=== PATIENT | male | born 1940 | race Two or more races ===

== ENCOUNTER 2024-05-25 09:44 | Inpatient (IN) | payer OTHER ==
[2024-05-25] VITALS (17 sets, daily range): BP systolic 80–156; BP diastolic 32–67; PULSE 46–57; RESP 11–17; TEMP 98.3–98.4; O2SAT 94–100
[~2024-05-25] VITALS: Ht 167.6 cm; Wt 76.0 kg
[~2024-05-25 09:44] MED LIST: AMLO1TAB21 PO; ATEN50TA80 PO; MULT-733 OR
[2024-05-25] MEDS ORDERED: HEPARIN SODIUM (PORCINE) 5000 UNITS/ML 1ML VIAL ONE (13:24)
[2024-05-25] MEDS ORDERED: fentaNYL CITRATE 100 MCG/2 ML VL ONE (13:27)
[2024-05-25] MEDS ORDERED: LIDOCAINE 1% INJ PF 5ML AMP ONE (13:28)
[2024-05-25] MEDS ORDERED: ONDANSETRON HCL 4 MG/2 ML VIAL ONE (13:28)
[2024-05-25] MEDS ORDERED: PROPOFOL 10 MG/ML 20 ML IV ONE (13:29)
[2024-05-25] MEDS ORDERED: MIDAZOLAM HCL 2MG/2ML 2ml VIAL (1mg/ml) ONE (13:32)
[2024-05-25 13:57] LABS: Basophils # (auto) 0.1 10 ^3/uL (0-0.2); Basophils % (auto) 0.6 % (0.0-2.0); Eosinophils # (auto) 0.3 10 ^3/uL (0-0.8); Eosinophils % (auto) 3.2 % (0.0-7.0); Hematocrit 41.6 % (41.0-53.0); Hemoglobin 13.8 g/dL (13.5-17.5); Lymphocytes # (auto) 1.2 10 ^3/uL (0.4-5.4); Lymphocytes % (auto) 10.9 % (10.0-50.0); Mean Corpuscular Hemoglobin 28.6 pg (28.0-32.0); Mean Corpuscular Hgb Conc. 33.2 g/dL (32.0-36.0); Monocytes # (auto) 0.7 10 ^3/uL (0-1.3); Monocytes % (auto) 6.4 % (0.0-12.0); Neutrophils # (auto) 8.6 10 ^3/uL (1.6-8.6); Neutrophils % (auto) 78.9 % (37.0-80.0); Nucleated Red Blood Cells % 0.1 %; Platelet Count (auto) 282 10^3/uL (140-450); Red Blood Cells 4.83 10^6/uL (4.5-5.90); Red Cell Distribution Width 15.3 % (11.8-14.3); White Blood Cell 10.8 10^3/uL (4.4-10.8)
[2024-05-25 14:13] LABS: Alanine Aminotransferase 11 U/L (7-40); Alkaline Phosphatase 98 U/L (46-116); Anion Gap 5 (5-15); Aspartate Aminotransferase 11 U/L (13-40); BUN/Creatinine Ratio 15.9 (10.0-20.0); Blood Urea Nitrogen 28 mg/dL (9-23); Calcium 9.4 mg/dL (8.7-10.4); Carbon Dioxide 27 mmol/L (20-30); Chloride 108 mmol/L (98-107); Glucose 96 mg/dL (74-106); Potassium 4.3 mmol/L (3.5-5.1); Sodium 140 mmol/L (136-145)
[2024-05-25 14:14] LABS: Albumin 3.7 g/dL (3.2-4.8); Bilirubin, Total 1.1 mg/dL (0.2-1.0); Total Protein 6.1 g/dL (5.7-8.2)
[2024-05-25 14:31] LABS: Partial Thromboplastin Time 29.1 SEC (24.5-34.5); Prothrombin Time 10.6 sec (9.3-11.8)
[2024-05-25] MEDS: ceFAZolin 2 GM/D5W50ml 50 ML IV ONE (14:38)
[2024-05-25] MEDS: HEPARIN SODIUM (PORCINE) 5000 UNITS/ML 1ML VIAL ONE (14:38)
[2024-05-25] MEDS: LIDOCAINE 1% (LOCAL ANESTH.) PF 5ml SDV ONE (14:38)
[2024-05-25] MEDS ORDERED: HYDROmorphone HCL 2 MG/ML VL/or syr ONE (16:39)
[2024-05-25] MEDS: HYDROmorphone HCL 2 MG/ML VL/or syr IV PRN (17:29)
[2024-05-25] MEDS ORDERED: HYDROmorphone HCL 2 MG/ML VL/or syr IV PRN (17:30)
[2024-05-25] MEDS ORDERED: ONDANSETRON HCL 4 MG/2 ML VIAL IV ONE (17:30)
[2024-05-25] MEDS ORDERED: ONDANSETRON HCL 4 MG/2 ML VIAL IV PRN (19:15)
[2024-05-25] MEDS: HYDROcodone-ACET 5/325MG TAB PO PRN (20:51)
[2024-05-25] MEDS: SODIUM CHLORIDE 0.9% 1,000 ML IV SCH (21:33)
[2024-05-25] MEDS: ATENOLOL 25 MG TAB PO SCH (21:33)
[2024-05-25] MEDS ORDERED: HYDROcodone-ACET 5/325MG TAB PO PRN (23:45)
[2024-05-25] MEDS: MORPHINE SULFATE INJ 2 MG/ml SYRG IV PRN (23:53)
[2024-05-25] MEDS: MORPHINE SULFATE INJ 2 MG/ml SYRG ONE (23:54)
[2024-05-26] VITALS (36 sets, daily range): BP systolic 68–154; BP diastolic 23–78; PULSE 45–63; RESP 11–25; TEMP 98.3–98.4; O2SAT 93–100
[2024-05-26 03:28] LABS: Basophils # (auto) 0 10 ^3/uL (0-0.2); Basophils % (auto) 0.2 % (0.0-2.0); Eosinophils # (auto) 0 10 ^3/uL (0-0.8); Eosinophils % (auto) 0.1 % (0.0-7.0); Hematocrit 32.3 % (41.0-53.0); Hemoglobin 10.8 g/dL (13.5-17.5); Lymphocytes # (auto) 0.7 10 ^3/uL (0.4-5.4); Lymphocytes % (auto) 7.1 % (10.0-50.0); Mean Corpuscular Hemoglobin 29.2 pg (28.0-32.0); Mean Corpuscular Hgb Conc. 33.5 g/dL (32.0-36.0); Monocytes # (auto) 0.5 10 ^3/uL (0-1.3); Monocytes % (auto) 5.2 % (0.0-12.0); Neutrophils # (auto) 8.6 10 ^3/uL (1.6-8.6); Neutrophils % (auto) 87.4 % (37.0-80.0); Platelet Count (auto) 213 10^3/uL (140-450); Red Blood Cells 3.72 10^6/uL (4.5-5.90); Red Cell Distribution Width 15.2 % (11.8-14.3); White Blood Cell 9.9 10^3/uL (4.4-10.8)
[2024-05-26 03:42] LABS: Anion Gap 8 (5-15); Carbon Dioxide 22 mmol/L (20-30); Chloride 111 mmol/L (98-107); Sodium 141 mmol/L (136-145)
[2024-05-26 03:43] LABS: Calcium 7.7 mg/dL (8.7-10.4)
[2024-05-26 03:47] LABS: Glucose 135 mg/dL (74-106)
[2024-05-26 03:48] LABS: BUN/Creatinine Ratio 15.8 (10.0-20.0); Blood Urea Nitrogen 26 mg/dL (9-23)
[2024-05-26] MEDS: FAMOTIDINE 20 MG TAB PO SCH (09:43)
[2024-05-26] MEDS: ACETAMINOPHEN 500 MG TAB PO PRN (10:30)
[2024-05-26] MEDS ORDERED: AMLO1TAB22 PO (13:43)
[2024-05-26] MEDS ORDERED: ROCURONIUM 10MG/ML 10ML VIAL IV ONE (15:28)
== END 2024-05-26 15:29 | disposition home or self-care (01) | DRG 38 ==
LOC: SUR 09:44 → TELE 17:33 → ICU WEST 18:04
PROVIDERS: ADMIT Hospitalist; ATTEND Hospitalist
PROC: 03CK0ZZ Extirpation of Matter from Right Internal Carotid Artery, Open Approach (ICD-10-PCS; 2024-05-25)
PROC: 03CH0ZZ Extirpation of Matter from Right Common Carotid Artery, Open Approach (ICD-10-PCS; principal; 2024-05-25 14:38)
DX: I65.21 Occlusion and stenosis of right carotid artery (principal); R71.0 Precipitous drop in hematocrit; I10 Essential (primary) hypertension; Z82.49 Family history of ischemic heart disease and other diseases of the circulatory system; Z88.2 Allergy status to sulfonamides
CPT/HCPCS: 36415; 80048; 80053; 85025; 85610; 85730; 86850; 86900; 86901; 87081; 97163; G0378; J2250; J2405; J2704